=== PATIENT | female | born 1960 | race African-American/Black ===

== ENCOUNTER 2017-06-22 07:52 | Emergency (ER) | payer OTHER ==
[2017-06-22 09:29] LABS: Bilirubin Negative (Negative); Blood, Urine Negative (Negative); Clarity CLEAR (Clear); Glucose, Urine (Dipstick) Negative (Negative); Leukocyte Trace (Negative); Nitrite Negative (Negative); Protein, Urine (Dipstick) Negative (Neg-Trace); Specific Gravity, Urine 1.023 (1.002-1.036); Urobilinogen 0.2 mg/dL (0.2-1.0)
[2017-06-22 09:31] LABS: Bacteria/HPF None Seen HPF (None Seen); Hyaline Casts/LPF 0-3 HYALINE CAST LPF (0-3 Hyaline); Squamous Epithelial None Seen HPF (0-3); WBC/HPF 0-3 HPF (0-3)
[2017-06-22 09:38] LABS: RBC/HPF 0-3 HPF (0-3)
[2017-06-22] MEDS ORDERED: Bacitracin Zinc 1 Packet ONE (10:36)
[2017-06-24 03:48] LABS: Chlamydia by PCR Not Detected (NotDetected); GC by PCR Not Detected (NotDetected)
== END 2017-06-22 10:35 | disposition home or self-care (01) ==
LOC: ERS 07:52
DX: S31.41XA Laceration without foreign body of vagina and vulva, initial encounter (principal); N95.2 Postmenopausal atrophic vaginitis; E66.9 Obesity, unspecified; X58.XXXA Exposure to other specified factors, initial encounter
CPT/HCPCS: 81003; 81015; 87480; 87491; 87510; 87591; 87660; 99283

== ENCOUNTER 2017-07-06 20:19 | Emergency (ER) | payer OTHER ==
[2017-07-06 21:30] LABS: #Lymphocytes 2.4 thou/uL (1.20-3.40); #Monocytes 1.1 thou/uL (0.11-0.59); %Eosinophils 0.5 % (0.0-10.0); %Lymphocytes 31.8 % (21.0-51.0); %Monocytes 14.4 % (0.0-10.0); %Neutrophils 53.4 % (42.0-75.0); Hemoglobin 13.3 g/dL (12.0-16.0); Mean Corpuscular Hemoglobin 28.9 pg (27.0-31.0); Mean Corpuscular Volume 87.6 fl (81.0-99.0); Mean Platelet Volume 6.9 fL (7.4-10.4); Platelet Count 230 thou/uL (130-400); RBC Distribution Width 12.6 % (11.5-14.5); Red Blood Cell (RBC) Count 4.59 mill/uL (4.20-5.40); White Blood Cell (WBC) Count 7.6 thou/uL (4.8-10.8)
[2017-07-06 21:53] LABS: ALT (SGPT) 33 U/L (8-55); AST (SGOT) 29 U/L (5-34); Albumin 3.6 g/dL (3.5-5.0); Alkaline Phosphatase 97 U/L (40-150); Anion Gap 13 mmol/L (10-20); BUN (Urea Nitrogen) 15 mg/dL (9.8-20.1); Bilirubin, Total 0.6 mg/dL (0.2-1.2); Calc. Creatinine Clearance 0 mL/min (70-130); Calcium 8.8 mg/dL (7.8-10.44); Carbon Dioxide 21 mmol/L (22-29); Chloride 107 mmol/L (98-107); Estimated GFR-MDRD 75; Glucose 94 mg/dL (70-105); Protein, Total 7.6 g/dL (6.0-8.3); Sodium 137 mmol/L (136-145)
[2017-07-06 22:11] LABS: CKMB 0.6 ng/mL (0-6.6); Troponin I Less than 0.010 ng/mL (< 0.028)
[2017-07-06] MEDS ORDERED: Meclizine HCl 25 MG TAB ONE (22:15)
[2017-07-06] MEDS ORDERED: Dexamethasone 4 mg/ml Vial ONE (22:15)
--- NOTE | 2017-07-06 22:40 | CT ---
CT BRAIN WITHOUT CONTRAST: 07/06/17 HISTORY: Dizziness. FINDINGS: Comparison made to exam of 02/22/13. No evidence of acute infarct, hemorrhage, midline shift or abnormal extra-axial fluid collections are seen. the ventricular size is normal and the basilar cisterns patent. The bony calvarium is intact. The left paranasal sinuses and mastoid air cells are well aerated. IMPRESSION: No CT evidence of acute intracranial process. POS: [facility]
--- NOTE | 2017-07-06 22:55 | RAD ---
PORTABLE CHEST ONE VIEW 07/06/17 at 9:56 p.m. HISTORY: Dizziness. FINDINGS: Comparison made with exam of 06/04/16. The heart size is normal. The lungs are well expanded without focal areas of consolidation, pneumotho rax or pleural effusions. There are postop changes in the right shoulder. IMPRESSION: No radiographic evidence of acute cardiopulmonary process. POS: [facility]
[2017-07-06 23:19] LABS: Bilirubin Negative (Negative); Blood, Urine Negative (Negative); Clarity CLEAR (Clear); Glucose, Urine (Dipstick) Negative (Negative); Leukocyte Moderate (Negative); Nitrite Negative (Negative); Protein, Urine (Dipstick) Negative (Neg-Trace); Specific Gravity, Urine 1.016 (1.002-1.036)
[2017-07-06 23:21] LABS: Bacteria/HPF Rare-Few HPF (None Seen); Hyaline Casts/LPF 0-3 HYALINE CAST LPF (0-3 Hyaline); Pathc Cast-AUWi Flag 0.29 (0-2.49); RBC/HPF 0-3 HPF (0-3); Squamous Epithelial 0-3 HPF (0-3); WBC/HPF 21-50 HPF (0-3)
== END 2017-07-06 23:38 | disposition home or self-care (01) ==
LOC: ERS 20:19
DX: N30.00 Acute cystitis without hematuria (principal); E66.9 Obesity, unspecified
CPT/HCPCS: 36415; 70450; 71045; 80053; 81003; 81015; 82553; 84484; 85025; 93005; 96361; 96374; J1100

== ENCOUNTER 2017-07-12 23:26 | Emergency (ER) | payer OTHER ==
[2017-07-12 23:44] LABS: Bilirubin Negative (Negative); Blood, Urine Negative (Negative); Clarity CLEAR (Clear); Glucose, Urine (Dipstick) Negative (Negative); Leukocyte Negative (Negative); Nitrite Negative (Negative); Protein, Urine (Dipstick) Negative (Neg-Trace); Specific Gravity, Urine 1.025 (1.002-1.036); pH, Urine 6.5 (5.0-9.0)
[2017-07-12 23:48] LABS: #Basophils 0.1 thou/uL (0.0-0.2); #Eosinphils 0.1 thou/uL (0.0-0.7); #Monocytes 0.7 thou/uL (0.11-0.59); #Neutrophils 4.3 thou/uL (1.40-6.50); %Basophils 0.7 % (0.0-1.0); %Lymphocytes 37.3 % (21.0-51.0); %Monocytes 8.7 % (0.0-10.0); %Neutrophils 52.3 % (42.0-75.0); Mean Corpuscular HGB CONC 32.7 g/dL (32.0-36.0); Mean Corpuscular Hemoglobin 28.7 pg (27.0-31.0); Mean Corpuscular Volume 87.7 fl (81.0-99.0); Mean Platelet Volume 6.6 fL (7.4-10.4); Platelet Count 328 thou/uL (130-400); RBC Distribution Width 12.8 % (11.5-14.5); Red Blood Cell (RBC) Count 4.52 mill/uL (4.20-5.40); White Blood Cell (WBC) Count 8.2 thou/uL (4.8-10.8)
[2017-07-13 00:18] LABS: ALT (SGPT) 28 U/L (8-55); AST (SGOT) 30 U/L (5-34); Albumin 3.6 g/dL (3.5-5.0); Alkaline Phosphatase 147 U/L (40-150); Anion Gap 13 mmol/L (10-20); BUN (Urea Nitrogen) 21 mg/dL (9.8-20.1); Bilirubin, Total 0.2 mg/dL (0.2-1.2); Calc. Creatinine Clearance 0 mL/min (70-130); Calcium 8.7 mg/dL (7.8-10.44); Carbon Dioxide 24 mmol/L (22-29); Chloride 108 mmol/L (98-107); Estimated GFR-MDRD 66; Globulin 4.2 g/dL (2.4-3.5); Glucose 97 mg/dL (70-105); Potassium 4.8 mmol/L (3.5-5.1); Protein, Total 7.8 g/dL (6.0-8.3); Sodium 140 mmol/L (136-145)
== END 2017-07-13 01:00 | disposition home or self-care (01) ==
LOC: ERS 23:26
DX: N39.3 Stress incontinence (female) (male) (principal); E66.9 Obesity, unspecified; Z79.899 Other long term (current) drug therapy
CPT/HCPCS: 36415; 80053; 81003; 85025; 99283

== ENCOUNTER 2018-05-07 12:24 | Emergency (ER) | payer OTHER | END 2018-05-07 13:48 | disposition home or self-care (01) | LOC: ERS 12:24 | DX: J01.90 Acute sinusitis, unspecified (principal); E66.9 Obesity, unspecified | CPT/HCPCS: 99283 ==

== ENCOUNTER 2018-09-29 15:37 | Outpatient (CLI) | payer OTHER ==
--- NOTE | 2018-09-29 16:27 | RAD ---
Lumbar spine 2 views HISTORY: Low back pain. Fall. FINDINGS: Ribs are very hypoplastic at the T12 level. Pedicles are intact. Vertebral body heights and alignment are maintained. Mild osteophytosis of the lower vertebral bodies and facets. Gas disc phenomenon at the lumbosacral junction. No acute fracture or dislocation. Calcification over the elias rial structures. Metallic clips over the gallbladder fossa. Oval calcification over the right retroperitoneal has the appearance of a phlebolith. IMPRESSION: Degenerative changes lumbar spine. No evidence of acute compression fracture. Atherosclerosis.
--- NOTE | 2018-09-29 16:28 | RAD ---
Left ankle 3 views HISTORY: Fall. Left ankle injury. FINDINGS: Ankle mortise and talar dome are intact. No acute fracture, dislocation, or aggressive osse ous erosions. Pes planus noted on the lateral view. IMPRESSION: No acute osseous abnormalities are demonstrated.
--- NOTE | 2018-09-29 16:29 | RAD ---
Left hip 2 views HISTORY: Fall. Left hip pain. FINDINGS: Moderate joint space narrowing. Mild osteophytosis and subchondral sclerosis. Femoral head contour is maintained. No acute fracture, dislocation, or aggressive osseous erosions. IMPRESSION: Mild to moderate osteoarthritic changes left hip. No acute osseous abnormalities are demo nstrated.
== END 2018-09-29 15:38 | disposition home or self-care (01) ==
LOC: BICRAD 15:37
PROVIDERS: ATTEND Family Medicine
DX: S93.402A Sprain of unspecified ligament of left ankle, initial encounter (principal); M25.552 Pain in left hip; M48.061 Spinal stenosis, lumbar region without neurogenic claudication; M16.12 Unilateral primary osteoarthritis, left hip; M47.816 Spondylosis without myelopathy or radiculopathy, lumbar region; I70.90 Unspecified atherosclerosis
CPT/HCPCS: 72100

== ENCOUNTER 2019-01-29 13:02 | Emergency (ER) | payer OTHER | END 2019-01-29 15:10 | disposition home or self-care (01) | LOC: ERS 13:02 | DX: M77.9 Enthesopathy, unspecified (principal); E66.9 Obesity, unspecified; Z79.899 Other long term (current) drug therapy | CPT/HCPCS: 99283 ==

== ENCOUNTER 2019-02-16 11:40 | Emergency (ER) | payer OTHER ==
[2019-02-16 13:46] LABS: Bilirubin Negative (Negative); Blood, Urine Negative (Negative); Clarity Clear (Clear); Glucose, Urine (Dipstick) Normal (Negative); Leukocyte Negative Leu/uL (Negative); Nitrite Negative (Negative); Protein, Urine (Dipstick) 10 mg/dL (Neg-Trace); Urobilinogen Normal mg/dL (Less than 2)
== END 2019-02-16 14:34 | disposition home or self-care (01) ==
LOC: ERS 11:40
DX: K64.4 Residual hemorrhoidal skin tags (principal); K60.2 Anal fissure, unspecified; B37.9 Candidiasis, unspecified; E66.9 Obesity, unspecified
CPT/HCPCS: 81003; 99283

== ENCOUNTER 2019-03-18 15:11 | Emergency (ER) | payer OTHER ==
[2019-03-18] MEDS ORDERED: Meclizine HCl 25 MG TAB ONE (16:00)
== END 2019-03-18 16:20 | disposition home or self-care (01) ==
LOC: ERS 15:11
DX: J30.9 Allergic rhinitis, unspecified (principal); R42 Dizziness and giddiness; E66.9 Obesity, unspecified
CPT/HCPCS: 93005; J8597

== ENCOUNTER 2019-07-18 18:09 | Emergency (ER) | payer OTHER | END 2019-07-18 19:37 | disposition home or self-care (01) | LOC: ERS 18:09 | DX: K04.7 Periapical abscess without sinus (principal); R09.82 Postnasal drip; E66.9 Obesity, unspecified; Z79.899 Other long term (current) drug therapy | CPT/HCPCS: 99282 ==

== ENCOUNTER 2019-08-12 21:45 | Emergency (ER) | payer OTHER | END 2019-08-12 22:38 | disposition home or self-care (01) | LOC: ERS 21:45 | DX: J30.9 Allergic rhinitis, unspecified (principal) | CPT/HCPCS: 99282 ==

== ENCOUNTER 2019-08-21 14:25 | Emergency (ER) | payer OTHER ==
[~2019-08-21 14:25] MED LIST: Iopamidol-370 76% 500 ML 1 ML ONE
[2019-08-21 15:05] LABS: Bilirubin Negative (Negative); Blood, Urine Negative (Negative); Clarity Clear (Clear); Glucose, Urine (Dipstick) Normal (Negative); Leukocyte 75 Leu/uL (Negative); Mucous/LPF Rare LPF (<2+); Nitrite Negative (Negative); Protein, Urine (Dipstick) Negative (Neg-Trace); RBC/HPF 0-3 HPF (0-3); Squamous Epithelial 0-3 HPF (0-3); Urobilinogen Normal mg/dL (Less than 2)
[2019-08-21 15:06] LABS: Bacteria/HPF Rare-Few HPF (None Seen)
[2019-08-21 15:26] LABS: #Lymphocytes 1.6 thou/uL (1.20-3.40); #Monocytes 0.5 thou/uL (0.11-0.59); #Neutrophils 2.1 thou/uL (1.40-6.50); %Basophils 0.4 % (0.0-1.0); %Eosinophils 0.9 % (0.0-10.0); %Lymphocytes 38.4 % (21.0-51.0); %Neutrophils 49.2 % (42.0-75.0); Hemoglobin 12.7 g/dL (12.0-16.0); Mean Corpuscular HGB CONC 33.2 g/dL (32.0-36.0); Mean Corpuscular Hemoglobin 29.3 pg (27.0-31.0); Mean Corpuscular Volume 88.3 fL (78.0-98.0); Mean Platelet Volume 7.8 fL (7.4-10.4); Platelet Count 202 thou/uL (130-400); RBC Distribution Width 12.6 % (11.5-14.5); Red Blood Cell (RBC) Count 4.34 mill/uL (4.20-5.40); White Blood Cell (WBC) Count 4.3 thou/uL (4.8-10.8)
[2019-08-21] MEDS ORDERED: Meclizine HCl 25 MG TAB ONE (15:35)
[2019-08-21 15:46] LABS: ALT (SGPT) 36 U/L (8-55); AST (SGOT) 33 U/L (5-34); Albumin 3.7 g/dL (3.4-4.8); Alkaline Phosphatase 127 U/L (40-110); Anion Gap 13 mmol/L (10-20); BUN (Urea Nitrogen) 16 mg/dL (9.8-20.1); Bilirubin, Total 0.3 mg/dL (0.2-1.2); Calc. Creatinine Clearance 0 mL/min (70-130); Calcium 9.1 mg/dL (7.8-10.44); Carbon Dioxide 23 mmol/L (23-31); Chloride 108 mmol/L (98-107); Estimated GFR-MDRD 74; Globulin 4.1 g/dL (2.4-3.5); Glucose 95 mg/dL (80-115); Lipase 38 U/L (8-78); Potassium 3.7 mmol/L (3.5-5.1); Protein, Total 7.8 g/dL (6.0-8.3); Sodium 140 mmol/L (136-145)
--- NOTE | 2019-08-21 17:30 | CT ---
CT ABDOMEN AND PELVIS WITH CONTRAST: 08/21/19 HISTORY: Intermittent abdominal pain for one week in middle of her abdomen and lower abdomen. TECHNIQUE: Multiple contiguous axial images obtained in a CT of the abdomen and pelvis with contrast. Sagittal a nd coronal reformats were performed. FINDINGS: The patient is status post cholecystectomy and hysterectomy. There is a 4.0 cm cyst in the right kidn ey. The liver, left kidney, adrenal glands, spleen, and pancreas are unremarkable. No free air, free fluid or stranding changes are seen in the abdomen or pelvis. The large and small bowel are unremarkable. The appendix is normal. No abdominal or pelvic lymphadeno jesus are seen. Atherosclerotic calcifications are seen in the aorta. Degenerative changes are seen in the spine. The visualized inferior thorax is unremarkable. There is a small fat containing umbilical hernia. IMPRESSION: 1. No evidence of acute intra-abdominal/pelvic abnormality. 2. Right renal cyst. 3. Umbilical hernia. POS: [facility]
[2019-08-25 19:25] LABS: Chlamydia by PCR Not Detected (NotDetected); GC by PCR DETECTED (NotDetected)
== END 2019-08-21 17:26 | disposition home or self-care (01) ==
LOC: ERS 14:25
DX: N28.1 Cyst of kidney, acquired (principal); B37.3 Candidiasis of vulva and vagina; N73.9 Female pelvic inflammatory disease, unspecified
CPT/HCPCS: 74177; 80053; 81003; 81015; 83690; 85025; 87077; 87086; 87186; 87480; 87491; 87510; 87591; 87660; 93005; 96372; J0500; Q9967

== ENCOUNTER 2019-08-26 07:01 | Emergency (ER) | payer OTHER ==
[2019-08-26 08:33] LABS: #Lymphocytes 1.1 thou/uL (1.20-3.40); #Monocytes 0.6 thou/uL (0.11-0.59); #Neutrophils 2.8 thou/uL (1.40-6.50); %Basophils 0.3 % (0.0-1.0); %Eosinophils 0.4 % (0.0-10.0); %Lymphocytes 23.8 % (21.0-51.0); %Monocytes 12.6 % (0.0-10.0); %Neutrophils 62.9 % (42.0-75.0); Mean Corpuscular HGB CONC 32.2 g/dL (32.0-36.0); Mean Corpuscular Hemoglobin 28.2 pg (27.0-31.0); Mean Corpuscular Volume 87.5 fL (78.0-98.0); Mean Platelet Volume 8.5 fL (7.4-10.4); Platelet Count 208 thou/uL (130-400); RBC Distribution Width 12.7 % (11.5-14.5); Red Blood Cell (RBC) Count 4.62 mill/uL (4.20-5.40); White Blood Cell (WBC) Count 4.4 thou/uL (4.8-10.8)
[2019-08-26 09:00] LABS: ALT (SGPT) 34 U/L (8-55); AST (SGOT) 34 U/L (5-34); Albumin 3.9 g/dL (3.4-4.8); Alkaline Phosphatase 114 U/L (40-110); Anion Gap 14 mmol/L (10-20); BUN (Urea Nitrogen) 11 mg/dL (9.8-20.1); Bilirubin, Total 0.4 mg/dL (0.2-1.2); Calc. Creatinine Clearance 0 mL/min (70-130); Calcium 8.8 mg/dL (7.8-10.44); Carbon Dioxide 22 mmol/L (23-31); Chloride 101 mmol/L (98-107); Estimated GFR-MDRD 80; Globulin 3.9 g/dL (2.4-3.5); Glucose 119 mg/dL (80-115); Potassium 3.7 mmol/L (3.5-5.1); Protein, Total 7.8 g/dL (6.0-8.3); Sodium 133 mmol/L (136-145)
[2019-08-26] MEDS ORDERED: Meclizine HCl 25 MG TAB ONE (09:03)
[2019-08-26 09:34] LABS: Bilirubin Negative (Negative); Blood, Urine Negative (Negative); Clarity Clear (Clear); Glucose, Urine (Dipstick) Normal (Negative); Leukocyte Negative Leu/uL (Negative); Nitrite Negative (Negative); Protein, Urine (Dipstick) Negative (Neg-Trace); Urobilinogen Normal mg/dL (Less than 2)
[2019-08-26] MEDS ORDERED: Metoclopramide HCl 10 MG/2 ML VIAL ONE (10:33)
[2019-08-26] MEDS ORDERED: Ketorolac Tromethamine 30 MG/ML VIAL ONE (10:33)
[2019-08-26] MEDS ORDERED: diphenhydrAMINE 50 MG/ML VIAL ONE (10:33)
[2019-08-26] MEDS ORDERED: methylPREDNISolone Sod Succ/PF 125 MG/2 ML VIAL ONE (10:33)
--- NOTE | 2019-08-26 10:59 | CT ---
EXAM: CT brain without contrast HISTORY: Vertigo and headache COMPARISON: 06/28/2017 TECHNIQUE: Multiple contiguous axial images were obtained and a CT of the brain without contrast. FINDINGS: There are subtle scattered hypodensities in the subcortical and periventricular white matte r consistent with small vessel ischemic disease. There is no evidence of hydrocephalus, intracranial hemorrhage, or extra-axial fluid collection. The calvarium and overlying soft tissues are unremarkable. The visualized paranasal sinuses and masto id air cells are well aerated. IMPRESSION: No evidence of acute intracranial abnormality
[2019-08-27 12:08] LABS: SARS-CoV-2 MS2 Positive; SARS-CoV-2 N Gene Positive; SARS-CoV-2 S Gene Positive; SARS-CoV-2 orf1ab Positive
--- NOTE | 2019-08-29 15:29 | EKG ---
Test Reason : Blood Pressure : / mmHG Vent. Rate : 069 BPM Atrial Rate : 069 BPM P-R Int : 142 ms QRS Dur : 070 ms QT Int : 412 ms P-R-T Axes : 046 -02 033 degrees QTc Int : 441 ms Normal sinus rhythm Minimal voltage criteria for LVH, may be normal variant Borderline ECG Confirmed by SAVITA ROLDAN, BRITNEY ([id number]), web content editor JOE SALAZAR ([id number]) on 08/29/2019 3:28:36 PM Referred By: Confirmed By:BRITNEY BARNEY MD
== END 2019-08-26 12:25 | disposition home or self-care (01) ==
LOC: ERS 07:01
DX: R51 Headache (principal); R42 Dizziness and giddiness; R53.1 Weakness; E66.9 Obesity, unspecified
CPT/HCPCS: 70450; 80053; 81003; 85025; 87635; 93005; 96361; 96365; 96375; J1200; J1885; J2765; J2930; U0003

== ENCOUNTER 2019-08-30 14:44 | Emergency (ER) | payer OTHER ==
[2019-08-30] MEDS ORDERED: Dexamethasone 10 MG/ML VIAL ONE (15:04)
[2019-08-30] MEDS ORDERED: Meclizine HCl 25 MG TAB ONE (15:04)
[2019-08-30] MEDS ORDERED: Lorazepam 2 MG/ML VIAL ONE (15:04)
--- NOTE | 2019-08-30 15:28 | RAD ---
EXAM: Single view of the chest HISTORY: Shortness of breath when walking and dizziness COMPARISON: 06/28/2017 FINDINGS: Single view of the chest shows an enlarged but stable cardiomediastinal silhouette. There i s no evidence of consolidation, mass, or pleural effusion. Postsurgical changes in the right shoulder. IMPRESSION: No evidence of acute cardiopulmonary disease
[2019-08-30 15:50] LABS: Hemoglobin 13.5 g/dL (12.0-16.0); Mean Corpuscular HGB CONC 33.2 g/dL (32.0-36.0); Mean Corpuscular Hemoglobin 28.8 pg (27.0-31.0); Mean Corpuscular Volume 86.6 fL (78.0-98.0); Mean Platelet Volume 8.1 fL (7.4-10.4); Platelet Count 174 thou/uL (130-400); RBC Distribution Width 12.5 % (11.5-14.5); White Blood Cell (WBC) Count 2.7 thou/uL (4.8-10.8)
[2019-08-30 16:06] LABS: ALT (SGPT) 26 U/L (8-55); AST (SGOT) 35 U/L (5-34); Albumin 3.4 g/dL (3.4-4.8); Alkaline Phosphatase 81 U/L (40-110); Anion Gap 14 mmol/L (10-20); BUN (Urea Nitrogen) 12 mg/dL (9.8-20.1); Bilirubin, Total 0.3 mg/dL (0.2-1.2); CK (CPK) 206 U/L (29-168); Calc. Creatinine Clearance 0 mL/min (70-130); Calcium 8.5 mg/dL (7.8-10.44); Carbon Dioxide 23 mmol/L (23-31); Chloride 100 mmol/L (98-107); Estimated GFR-MDRD 74; Globulin 3.9 g/dL (2.4-3.5); Glucose 118 mg/dL (80-115); Lipase 47 U/L (8-78); Potassium 3.3 mmol/L (3.5-5.1); Protein, Total 7.3 g/dL (6.0-8.3); Sodium 134 mmol/L (136-145)
[2019-08-30 16:11] LABS: Band 5 % (5-11); Lymphocytes 27 % (21-51); MDiff Complete? YES; Monocytes 14 % (0-10); Neutrophil 39 % (42-75); Platelet Morphology Comment Appears Adequate; RBC Morphology Normal; Reactive Lymphocytes 15 % (0-10)
--- NOTE | 2019-08-30 17:35 | CT ---
CT PULMONARY ANGIOGRAM WITH IV CONTRAST AND 3D MIP RECONSTRUCTIONS: Date: 08-30-2019 Provided Clinical History: Cough, shortness of breath, Covid positive. FINDINGS: The heart, pericardium, and great vessels demonstrate an unremarkable CT angiographic appearance with the exception of pulmonary calcium. There is no evidence for central or segmental pulmonary embolus. No evidence for thoracic lymph node enlargement. No pleural fluid or pneumothorax evident. Multiple patchy peripheral areas of ground glass opacity ar e demonstrated bilaterally. No juan consolidation or focal nodule. The airway appears patent and of normal caliber. The visualized portions of the upper abdomen demonstrate no significant abnormality. The osseous stru ctures demonstrate no concerning lytic or blastic lesions. IMPRESSION: 1. No evidence for central or segmental pulmonary embolus. 2. Coronary calcium. 3. Common liver port has imaging features of Covid pneumonia are present. Other processes such as inf luenza pneumonia and organizing pneumonia can cause a similar imaging pattern. POS: [facility]
== END 2019-08-30 18:10 | disposition home or self-care (01) ==
LOC: ERS 14:44
DX: U07.1 COVID-19 (principal); J12.89 Other viral pneumonia; R42 Dizziness and giddiness; E66.9 Obesity, unspecified; Z79.899 Other long term (current) drug therapy
CPT/HCPCS: 71045; 71275; 80053; 82550; 83690; 84484; 85025; 85379; 93005; 96361; 96374; J1100; J2060; Q9967

== ENCOUNTER 2019-11-21 08:17 | Emergency (ER) | payer OTHER ==
[2019-11-21] MEDS ORDERED: Ketorolac Tromethamine 30 MG/ML VIAL ONE (08:43)
== END 2019-11-21 09:36 | disposition home or self-care (01) ==
LOC: ERS 08:17
DX: M79.601 Pain in right arm (principal); M79.602 Pain in left arm; M79.604 Pain in right leg; M79.605 Pain in left leg; R05 Cough; E66.9 Obesity, unspecified
CPT/HCPCS: 96372; 99283; J1885

== ENCOUNTER 2020-01-28 18:12 | Emergency (ER) | payer OTHER ==
--- NOTE | 2020-01-28 20:33 | RAD ---
TWO VIEW CHEST: 01/28/20 HISTORY: Shortness of breath. COMPARISON: 10/21/19. Lungs appear clear. No infiltrate identified. Heart and mediastinum unremarkable. IMPRESSION: No acute process. POS: [facility]
== END 2020-01-28 22:24 | disposition home or self-care (01) ==
LOC: ERS 18:12
DX: J39.8 Other specified diseases of upper respiratory tract (principal); E66.9 Obesity, unspecified; I10 Essential (primary) hypertension; Z86.19 Personal history of other infectious and parasitic diseases; Z79.899 Other long term (current) drug therapy
CPT/HCPCS: 71046

== ENCOUNTER 2020-07-10 16:34 | Emergency (ER) | payer OTHER ==
[2020-07-10 17:59] LABS: Bilirubin Negative (Negative); Blood, Urine Negative (Negative); Clarity Clear (Clear); Glucose, Urine (Dipstick) Normal (Negative); Ketone, Urine Negative (Negative); Leukocyte Negative Leu/uL (Negative); Nitrite Negative (Negative); Protein, Urine (Dipstick) Negative (Neg-Trace); Specific Gravity, Urine 1.025 (1.002-1.036); Urobilinogen Normal mg/dL (Less than 2)
[2020-07-10] MEDS ORDERED: Acetaminophen 500 MG TAB ONE (18:46)
[2020-07-12 21:55] LABS: Chlamydia by PCR Not Detected (NotDetected); GC by PCR Not Detected (NotDetected)
== END 2020-07-10 19:50 | disposition home or self-care (01) ==
LOC: ERS 16:34
DX: M79.605 Pain in left leg (principal); M79.604 Pain in right leg; N89.8 Other specified noninflammatory disorders of vagina; I10 Essential (primary) hypertension; E66.9 Obesity, unspecified
CPT/HCPCS: 81003; 87086; 87480; 87491; 87510; 87591; 87660; 99283

== ENCOUNTER 2020-09-17 14:39 | Emergency (ER) | payer OTHER ==
[2020-09-17 15:50] LABS: #Eosinphils 0.1 thou/uL (0.0-0.7); #Lymphocytes 2.1 thou/uL (1.20-3.40); #Monocytes 0.6 thou/uL (0.11-0.59); #Neutrophils 2.2 thou/uL (1.40-6.50); %Basophils 0.2 % (0.0-1.0); %Eosinophils 1.3 % (0.0-10.0); %Lymphocytes 43.2 % (21.0-51.0); %Monocytes 11.3 % (0.0-10.0); %Neutrophils 43.9 % (42.0-75.0); Hemoglobin 13.6 g/dL (12.0-16.0); Mean Corpuscular HGB CONC 31.9 g/dL (32.0-36.0); Mean Corpuscular Hemoglobin 28.6 pg (27.0-31.0); Mean Corpuscular Volume 89.6 fL (78.0-98.0); Mean Platelet Volume 7.9 fL (7.4-10.4); Platelet Count 224 thou/uL (130-400); RBC Distribution Width 12.8 % (11.5-14.5); Red Blood Cell (RBC) Count 4.76 mill/uL (4.20-5.40); White Blood Cell (WBC) Count 4.9 thou/uL (4.8-10.8)
[2020-09-17] MEDS ORDERED: Nitroglycerin 2% Ointment 1 INCH/1 GM Packet ONE (16:11)
[2020-09-17] MEDS ORDERED: Aspirin Chewable 81 MG TAB ONE (16:11)
[2020-09-17 16:47] LABS: Bilirubin Negative (Negative); Blood, Urine Negative (Negative); Clarity Clear (Clear); Glucose, Urine (Dipstick) Normal (Negative); Ketone, Urine Negative (Negative); Leukocyte Negative Leu/uL (Negative); Nitrite Negative (Negative); Protein, Urine (Dipstick) Negative (Neg-Trace); Specific Gravity, Urine 1.018 (1.002-1.036); Urobilinogen Normal mg/dL (Less than 2); pH, Urine 5.5 (5.0-9.0)
[2020-09-17 17:01] LABS: Albumin 3.6 g/dL (3.4-4.8)
[2020-09-17 17:02] LABS: Calcium 9.2 mg/dL (7.8-10.44); Chloride 107 mmol/L (98-107); Potassium 3.7 mmol/L (3.5-5.1); Sodium 137 mmol/L (136-145)
[2020-09-17 17:03] LABS: Globulin 3.9 g/dL (2.4-3.5); Glucose 79 mg/dL (80-115); Protein, Total 7.5 g/dL (5.8-8.1)
[2020-09-17 17:04] LABS: Anion Gap 13 mmol/L (10-20); Carbon Dioxide 21 mmol/L (23-31)
[2020-09-17 17:05] LABS: Bilirubin, Total 0.4 mg/dL (0.2-1.2)
[2020-09-17 17:06] LABS: Alkaline Phosphatase 108 U/L (40-110); Calc. Creatinine Clearance 0 mL/min (70-130)
[2020-09-17 17:07] LABS: BUN (Urea Nitrogen) 16 mg/dL (9.8-20.1)
[2020-09-17 17:08] LABS: AST (SGOT) 25 U/L (5-34)
[2020-09-17 17:09] LABS: ALT (SGPT) 23 U/L (8-55); Lipase 48 U/L (8-78)
[2020-09-17 20:46] LABS: Troponin I Less than 0.010 ng/mL (< 0.028)
== END 2020-09-17 21:30 | disposition home or self-care (01) ==
LOC: ERS 14:39
DX: R07.9 Chest pain, unspecified (principal); I10 Essential (primary) hypertension; E66.9 Obesity, unspecified
CPT/HCPCS: 36415; 71045; 80053; 81003; 83690; 83880; 84484; 85025; 93005

== ENCOUNTER 2021-03-15 13:45 | Outpatient (CLI) | payer OTHER | END 2021-03-15 13:46 | disposition home or self-care (01) | LOC: BICRAD 13:45 | PROVIDERS: ATTEND Family Medicine | DX: M54.50 Low back pain, unspecified (principal); G89.29 Other chronic pain | CPT/HCPCS: 71046; 72100; 72170 ==

== ENCOUNTER 2021-03-28 11:04 | Outpatient (CLI) | payer OTHER | END 2021-03-28 11:05 | disposition home or self-care (01) | LOC: BICMAMMO 11:04 | PROVIDERS: ATTEND Family Medicine | DX: Z12.31 Encounter for screening mammogram for malignant neoplasm of breast (principal); Z80.3 Family history of malignant neoplasm of breast; Z91.89 Other specified personal risk factors, not elsewhere classified; N64.89 Other specified disorders of breast | CPT/HCPCS: 77067 ==

== ENCOUNTER 2021-03-29 13:53 | Outpatient (CLI) | payer OTHER | END 2021-03-29 13:54 | disposition home or self-care (01) | LOC: BICMAMMO 13:53 | PROVIDERS: ATTEND Family Medicine | DX: R92.2 Inconclusive mammogram (principal); N64.89 Other specified disorders of breast | CPT/HCPCS: G0279 ==

== ENCOUNTER 2021-04-04 01:51 | Emergency (ER) | payer OTHER ==
[2021-04-04 03:18] LABS: #Basophils 0.1 thou/uL (0.0-0.2); #Eosinphils 0.1 thou/uL (0.0-0.7); #Lymphocytes 1.9 thou/uL (1.20-3.40); #Monocytes 0.6 thou/uL (0.11-0.59); #Neutrophils 2.1 thou/uL (1.40-6.50); %Basophils 1.5 % (0.0-1.0); %Eosinophils 1.2 % (0.0-10.0); %Lymphocytes 41.1 % (21.0-51.0); %Monocytes 11.9 % (0.0-10.0); %Neutrophils 44.3 % (42.0-75.0); Hemoglobin 12.5 g/dL (12.0-16.0); Mean Corpuscular HGB CONC 31.5 g/dL (32.0-36.0); Mean Corpuscular Hemoglobin 28.4 pg (27.0-31.0); Mean Corpuscular Volume 90.2 fL (78.0-98.0); Mean Platelet Volume 7.2 fL (7.4-10.4); Platelet Count 192 thou/uL (130-400); RBC Distribution Width 12.5 % (11.5-14.5); Red Blood Cell (RBC) Count 4.42 mill/uL (4.20-5.40); White Blood Cell (WBC) Count 4.7 thou/uL (4.8-10.8)
[2021-04-04 03:35] LABS: ALT (SGPT) 42 U/L (8-55); AST (SGOT) 38 U/L (5-34); Albumin 3.3 g/dL (3.4-4.8); Alkaline Phosphatase 117 U/L (40-110); Anion Gap 14 mmol/L (10-20); BUN (Urea Nitrogen) 16 mg/dL (9.8-20.1); Bilirubin, Total 0.3 mg/dL (0.2-1.2); Calc. Creatinine Clearance 0 mL/min (70-130); Calcium 8.9 mg/dL (7.8-10.44); Carbon Dioxide 19 mmol/L (23-31); Chloride 110 mmol/L (98-107); Globulin 3.7 g/dL (2.4-3.5); Glucose 121 mg/dL (80-115); Potassium 3.7 mmol/L (3.5-5.1); Sodium 139 mmol/L (136-145)
[2021-04-04] MEDS ORDERED: diphenhydrAMINE 25 MG CAP ONE (05:39)
== END 2021-04-04 06:10 | disposition home or self-care (01) ==
LOC: ERS 01:51
DX: R06.00 Dyspnea, unspecified (principal); I10 Essential (primary) hypertension; E66.9 Obesity, unspecified
CPT/HCPCS: 36415; 71045; 80053; 83880; 84484; 85025; 93005

== ENCOUNTER 2021-04-11 12:13 | Outpatient (CLI) | payer OTHER | END 2021-04-11 12:14 | disposition home or self-care (01) | LOC: MRI 12:13 | PROVIDERS: ATTEND Family Medicine | DX: M47.816 Spondylosis without myelopathy or radiculopathy, lumbar region (principal); G89.4 Chronic pain syndrome; M51.9 Unspecified thoracic, thoracolumbar and lumbosacral intervertebral disc disorder | CPT/HCPCS: 72148 ==

== ENCOUNTER 2021-08-15 15:49 | Emergency (ER) | payer OTHER ==
[2021-08-15] MEDS ORDERED: Ondansetron PF 4 MG/2 ML Vial ONE (16:22)
[2021-08-15 17:08] LABS: Hemoglobin 13.2 g/dL (12.0-16.0); Lymphocytes 32 % (21-51); MDiff Complete? YES; Mean Corpuscular HGB CONC 33.2 g/dL (32.0-36.0); Mean Corpuscular Volume 90.3 fL (78.0-98.0); Mean Platelet Volume 8.3 fL (7.4-10.4); Monocytes 8 % (0-10); Neutrophil 50 % (42-75); Platelet Count 157 thou/uL (130-400); Platelet Morphology Comment Appears Adequate; RBC Distribution Width 13.1 % (11.5-14.5); RBC Morphology Normal; Reactive Lymphocytes 6 % (0-10); Red Blood Cell (RBC) Count 4.41 mill/uL (4.20-5.40)
[2021-08-15 17:21] LABS: ALT (SGPT) 47 U/L (8-55); AST (SGOT) 70 U/L (5-34); Lipase 29 U/L (8-78)
[2021-08-15 18:00] LABS: Bilirubin Negative (Negative); Blood, Urine Negative (Negative); Clarity Clear (Clear); Glucose, Urine (Dipstick) Normal (Negative); Ketone, Urine Negative (Negative); Leukocyte Negative Leu/uL (Negative); Nitrite Negative (Negative); Protein, Urine (Dipstick) Negative (Neg-Trace); Specific Gravity, Urine 1.016 (1.002-1.036); Urobilinogen Normal mg/dL (Less than 2)
[2021-08-15 18:45] LABS: Albumin 3.4 g/dL (3.4-4.8)
[2021-08-15 18:46] LABS: Chloride 106 mmol/L (98-107); Potassium 4.2 mmol/L (3.5-5.1); Sodium 138 mmol/L (136-145)
[2021-08-15 18:47] LABS: Glucose 84 mg/dL (80-115)
[2021-08-15 18:48] LABS: Globulin 3.4 g/dL (2.4-3.5); Protein, Total 6.8 g/dL (5.8-8.1)
[2021-08-15 18:49] LABS: Anion Gap 10 mmol/L (10-20); Bilirubin, Total 0.4 mg/dL (0.2-1.2); Carbon Dioxide 26 mmol/L (23-31)
[2021-08-15 18:49] LABS: SARS-CoV-2 NAA Rapid Test Not Detected (NotDetected)
[2021-08-15 18:50] LABS: Alkaline Phosphatase 101 U/L (40-110)
[2021-08-15 18:51] LABS: Calc. Creatinine Clearance 0 mL/min (70-130)
[2021-08-15 18:52] LABS: BUN (Urea Nitrogen) 17 mg/dL (9.8-20.1)
== END 2021-08-15 19:21 | disposition home or self-care (01) ==
LOC: ERS 15:49
DX: B34.9 Viral infection, unspecified (principal); Z20.822 Contact with and (suspected) exposure to COVID-19; I10 Essential (primary) hypertension; Z79.899 Other long term (current) drug therapy
CPT/HCPCS: 71045; 80053; 81003; 83605; 83690; 84484; 85025; 93005; 96361; 96374; J2405; U0002

== ENCOUNTER 2021-09-28 10:01 | Emergency (ER) | payer OTHER ==
[~2021-09-28 10:01] MED LIST changes: +ISOVUE-370 76%-LOCM 1 ML ONE; -Iopamidol-370 76% 500 ML 1 ML ONE
[2021-09-28 10:55] LABS: #Basophils 0.1 thou/uL (0.0-0.2); #Lymphocytes 2.1 thou/uL (1.20-3.40); #Monocytes 0.8 thou/uL (0.11-0.59); #Neutrophils 3.1 thou/uL (1.40-6.50); %Basophils 0.9 % (0.0-1.0); %Eosinophils 0.7 % (0.0-10.0); %Lymphocytes 34.9 % (21.0-51.0); %Monocytes 12.4 % (0.0-10.0); %Neutrophils 51.1 % (42.0-75.0); Hemoglobin 13.8 g/dL (12.0-16.0); Mean Corpuscular HGB CONC 31.5 g/dL (32.0-36.0); Mean Corpuscular Hemoglobin 29.4 pg (27.0-31.0); Mean Corpuscular Volume 93.4 fL (78.0-98.0); Mean Platelet Volume 7.5 fL (7.4-10.4); Platelet Count 205 thou/uL (130-400); RBC Distribution Width 12.6 % (11.5-14.5); Red Blood Cell (RBC) Count 4.68 mill/uL (4.20-5.40); White Blood Cell (WBC) Count 6.1 thou/uL (4.8-10.8)
[2021-09-28 11:17] LABS: ALT (SGPT) 51 U/L (8-55); AST (SGOT) 48 U/L (5-34); Albumin 3.6 g/dL (3.4-4.8); Alkaline Phosphatase 112 U/L (40-110); Anion Gap 12 mmol/L (10-20); BUN (Urea Nitrogen) 17 mg/dL (9.8-20.1); Bilirubin, Total 0.3 mg/dL (0.2-1.2); Calc. Creatinine Clearance 0 mL/min (70-130); Carbon Dioxide 24 mmol/L (23-31); Chloride 106 mmol/L (98-107); Estimated GFR 55; Globulin 4.2 g/dL (2.4-3.5); Glucose 96 mg/dL (80-115); Lipase 45 U/L (8-78); Protein, Total 7.8 g/dL (5.8-8.1); Sodium 138 mmol/L (136-145)
== END 2021-09-28 12:58 | disposition home or self-care (01) ==
LOC: ERS 10:01
DX: R10.13 Epigastric pain (principal); R10.11 Right upper quadrant pain; R11.0 Nausea; I10 Essential (primary) hypertension; Z79.899 Other long term (current) drug therapy
CPT/HCPCS: 36415; 74177; 80053; 83690; 84484; 85025; 93005; Q9966

== ENCOUNTER 2021-10-02 18:54 | Emergency (ER) | payer OTHER ==
[2021-10-02] MEDS ORDERED: Oxymetazoline HCl 0.05% (30 ML BOT) ONE (21:26)
[2021-10-02] MEDS ORDERED: guaiFENesin ER 600 MG TAB PO SCH (21:30)
[2021-10-02] MEDS ORDERED: Loratadine 10 MG TAB PO SCH (21:30)
[2021-10-02] MEDS ORDERED: Ibuprofen 600 MG TAB PO SCH (21:30)
== END 2021-10-02 21:58 | disposition home or self-care (01) ==
LOC: ERS 18:54
DX: U07.1 COVID-19 (principal); J31.0 Chronic rhinitis; I10 Essential (primary) hypertension
CPT/HCPCS: 99283; U0003; U0005

== ENCOUNTER 2021-11-29 09:50 | Emergency (ER) | payer OTHER ==
[2021-11-29] MEDS ORDERED: Ketorolac Tromethamine 30 MG/ML VIAL ONE (11:57)
== END 2021-11-29 13:10 | disposition home or self-care (01) ==
LOC: ERS 09:50
DX: M25.551 Pain in right hip (principal); R09.81 Nasal congestion; I10 Essential (primary) hypertension; E66.9 Obesity, unspecified; W18.2XXA Fall in (into) shower or empty bathtub, initial encounter; Z20.822 Contact with and (suspected) exposure to COVID-19; Z68.45 Body mass index [BMI] 70 or greater, adult; Z86.16 Personal history of COVID-19; Z79.899 Other long term (current) drug therapy
CPT/HCPCS: 72170; 96372; J1885; U0003; U0005

== ENCOUNTER 2021-12-22 07:04 | Day surgery (SDC) | payer OTHER ==
[2021-12-22] MEDS ORDERED: Fentanyl 100 MCG/2 ML VIAL ONE (09:16)
[2021-12-22] MEDS ORDERED: PROPOFOL 200 MG/20 ML VIAL ONE (09:30)
== END 2021-12-22 10:20 | disposition home or self-care (01) ==
LOC: SDC 07:04
PROVIDERS: ATTEND Internal Medicine Gastroenterology
PROC: 0DB68ZX Excision of Stomach, Via Natural or Artificial Opening Endoscopic, Diagnostic (ICD-10-PCS; principal; 2021-12-22)
DX: K29.50 Unspecified chronic gastritis without bleeding (principal); K25.9 Gastric ulcer, unspecified as acute or chronic, without hemorrhage or perforation; K44.9 Diaphragmatic hernia without obstruction or gangrene; I10 Essential (primary) hypertension; B18.2 Chronic viral hepatitis C; M19.90 Unspecified osteoarthritis, unspecified site; J45.909 Unspecified asthma, uncomplicated; E66.9 Obesity, unspecified; Z68.41 Body mass index [BMI] 40.0-44.9, adult; Z86.16 Personal history of COVID-19
CPT/HCPCS: 88305; 88342; J2704; J3010

== ENCOUNTER 2021-12-24 04:24 | Emergency (ER) | payer OTHER ==
[2021-12-24] MEDS ORDERED: Meclizine HCl 25 MG TAB ONE (05:48)
== END 2021-12-24 06:25 | disposition home or self-care (01) ==
LOC: ERS 04:24
DX: J45.909 Unspecified asthma, uncomplicated (principal); Z20.822 Contact with and (suspected) exposure to COVID-19
CPT/HCPCS: 71045; 72170; U0003; U0005

== ENCOUNTER 2022-02-17 09:38 | Emergency (ER) | payer OTHER ==
[2022-02-17 10:57] LABS: #Eosinphils 0.1 thou/uL (0.0-0.7); #Lymphocytes 2.5 thou/uL (1.20-3.40); #Monocytes 0.8 thou/uL (0.11-0.59); #Neutrophils 3.2 thou/uL (1.40-6.50); %Basophils 0.3 % (0.0-1.0); %Eosinophils 0.8 % (0.0-10.0); %Lymphocytes 38.4 % (21.0-51.0); %Neutrophils 48.5 % (42.0-75.0); Hemoglobin 13.4 g/dL (12.0-16.0); Mean Corpuscular HGB CONC 32.1 g/dL (32.0-36.0); Mean Corpuscular Hemoglobin 30.1 pg (27.0-31.0); Mean Corpuscular Volume 93.6 fl (78.0-98.0); Mean Platelet Volume 7.8 fL (7.4-10.4); Platelet Count 203 10x3/uL (130-400); RBC Distribution Width 12.9 % (11.5-14.5); Red Blood Cell (RBC) Count 4.44 mill/uL (4.20-5.40); White Blood Cell (WBC) Count 6.6 10x3/uL (4.8-10.8)
[2022-02-17 11:00] LABS: Bacteria/HPF None Seen HPF (None Seen); Bilirubin Negative (Negative); Blood, Urine Negative (Negative); Clarity Clear (Clear); Glucose, Urine (Dipstick) Normal (Negative); Ketone, Urine Negative (Negative); Leukocyte 25 Leu/uL (Negative); Nitrite Negative (Negative); Protein, Urine (Dipstick) Negative (Neg-Trace); RBC/HPF 0-3 HPF (0-3); Specific Gravity, Urine 1.027 (1.002-1.036); Squamous Epithelial 0-3 HPF (0-3); Urobilinogen Normal mg/dL (Less than 2); WBC/HPF 0-3 HPF (0-3)
[2022-02-17 11:07] LABS: ALT (SGPT) 16 U/L (8-55); AST (SGOT) 16 U/L (5-34); Albumin 3.6 g/dL (3.4-4.8); Alkaline Phosphatase 112 U/L (40-110); Anion Gap 12 mmol/L (10-20); BUN (Urea Nitrogen) 17 mg/dL (9.8-20.1); Bilirubin, Total 0.4 mg/dL (0.2-1.2); Calc. Creatinine Clearance 0 mL/min (70-130); Calcium 8.9 mg/dL (7.8-10.44); Carbon Dioxide 26 mmol/L (23-31); Chloride 105 mmol/L (98-107); Estimated GFR 43; Globulin 3.4 g/dL (2.4-3.5); Glucose 99 mg/dL (80-115); Potassium 4.1 mmol/L (3.5-5.1); Sodium 139 mmol/L (136-145)
== END 2022-02-17 12:22 | disposition home or self-care (01) ==
LOC: ERS 09:38
DX: N94.10 Unspecified dyspareunia (principal); B37.31 Acute candidiasis of vulva and vagina
CPT/HCPCS: 36415; 74177; 80053; 81003; 81015; 85025; 87086

== ENCOUNTER 2022-03-21 10:25 | Emergency (ER) | payer OTHER ==
[2022-03-21] MEDS ORDERED: Ibuprofen 800 MG TAB ONE (10:55)
== END 2022-03-21 13:08 | disposition home or self-care (01) ==
LOC: ERS 10:25
DX: S70.01XA Contusion of right hip, initial encounter (principal); G89.29 Other chronic pain; W19.XXXA Unspecified fall, initial encounter
CPT/HCPCS: 72192

== ENCOUNTER 2022-09-30 18:04 | Emergency (ER) | payer OTHER ==
[2022-09-30 18:49] LABS: Bacteria/HPF None Seen HPF (None Seen); Bilirubin Negative (Negative); Blood, Urine Negative (Negative); CAUTI Indications for Culture Pelvic or flank pain; Clarity Clear (Clear); Glucose, Urine (Dipstick) Normal (Negative); Ketone, Urine Negative (Negative); Leukocyte Negative Leu/uL (Negative); Nitrite Negative (Negative); Protein, Urine (Dipstick) Negative (Neg-Trace); RBC/HPF None Seen HPF (0-3); Specific Gravity, Urine 1.021 (1.002-1.036); Squamous Epithelial 0-3 HPF (0-3); Urobilinogen Normal mg/dL (Less than 2); WBC/HPF 0-3 HPF (0-3)
[2022-09-30 18:52] LABS: Urine Culture Reflex No No
== END 2022-09-30 19:37 | disposition home or self-care (01) ==
LOC: ERS 18:04
DX: N89.8 Other specified noninflammatory disorders of vagina (principal); L03.317 Cellulitis of buttock; I10 Essential (primary) hypertension; Z79.899 Other long term (current) drug therapy
CPT/HCPCS: 81001; 99283

== ENCOUNTER 2022-12-28 18:11 | Emergency (ER) | payer OTHER ==
[2022-12-28 18:58] LABS: Bacteria/HPF None Seen HPF (None Seen); Bilirubin Negative (Negative); Blood, Urine Negative (Negative); CAUTI Indications for Culture Dysuria,urgency,freq; Clarity Clear (Clear); Glucose, Urine (Dipstick) Normal (Negative); Ketone, Urine Negative (Negative); Leukocyte Negative Leu/uL (Negative); Nitrite Negative (Negative); Protein, Urine (Dipstick) Negative (Neg-Trace); RBC/HPF 0-3 HPF (0-3); Specific Gravity, Urine 1.029 (1.002-1.036); Squamous Epithelial 0-3 HPF (0-3); Urobilinogen Normal mg/dL (Less than 2); WBC/HPF 0-3 HPF (0-3)
[2022-12-28 19:00] LABS: Urine Culture Reflex No No
[2022-12-28] MEDS ORDERED: cefTRIAXone (ROCEPHIN) 500 MG VIAL ONE (19:18)
[2022-12-28] MEDS ORDERED: Lidocaine 1% PF 5 ML VIAL ONE (19:19)
[2022-12-29 09:40] LABS: Chlamydia by PCR, Vaginal Swab Not Detected (NotDetected); GC by PCR, Vaginal Swab Not Detected (NotDetected); Tric.vaginalis PCR,Vaginal Sw Not Detected (NotDetected)
== END 2022-12-28 19:54 | disposition home or self-care (01) ==
LOC: ERS 18:11
DX: R30.0 Dysuria (principal); I10 Essential (primary) hypertension; Z20.2 Contact with and (suspected) exposure to infections with a predominantly sexual mode of transmission
CPT/HCPCS: 81001; 87491; 87591; 87661; 96372; 99283; J0696

== ENCOUNTER 2023-02-23 14:40 | Emergency (ER) | payer OTHER ==
[2023-02-23] MEDS ORDERED: Dexamethasone 10 MG/ML VIAL ONE (16:06)
[2023-02-23] MEDS ORDERED: Ketorolac Tromethamine 30 MG/ML VIAL ONE (16:06)
== END 2023-02-23 17:08 | disposition home or self-care (01) ==
LOC: ERS 14:40
DX: M16.11 Unilateral primary osteoarthritis, right hip (principal); I10 Essential (primary) hypertension
CPT/HCPCS: 96372; J1100; J1885

== ENCOUNTER 2023-04-05 11:03 | Emergency (ER) | payer OTHER ==
[2023-04-05] MEDS ORDERED: Ketorolac Tromethamine 30 MG (1 mL) VIAL ONE (12:58)
== END 2023-04-05 14:11 | disposition home or self-care (01) ==
LOC: ERS 11:03
DX: M25.511 Pain in right shoulder (principal); I10 Essential (primary) hypertension; X50.0XXA Overexertion from strenuous movement or load, initial encounter; Y93.89 Activity, other specified; Z79.899 Other long term (current) drug therapy
CPT/HCPCS: 96372; J1885

== ENCOUNTER 2023-04-23 16:53 | Emergency (ER) | payer OTHER ==
[~2023-04-23 16:53] MED LIST changes: -ISOVUE-370 76%-LOCM 1 ML ONE; +Iopamidol 370 76% 100 ML VIAL ONE
[2023-04-23] MEDS ORDERED: Dexamethasone 10 MG/ML VIAL ONE (17:42)
[2023-04-23] MEDS ORDERED: Ipratropium/Albuterol 3 ML NEB ONE (17:43)
[2023-04-23] MEDS ORDERED: Acetaminophen 325 MG TAB ONE (17:53)
[2023-04-23 18:33] LABS: #Eosinphils 0.1 thou/uL (0.0-0.7); #Monocytes 0.5 thou/uL (0.11-0.59); #Neutrophils 3.5 thou/uL (1.40-6.50); %Basophils 0.5 % (0.0-1.0); %Lymphocytes 31.4 % (21.0-51.0); %Monocytes 8.3 % (0.0-10.0); %Neutrophils 58.5 % (42.0-75.0); Hematocrit 38.2 % (36.0-47.0); Mean Corpuscular HGB CONC 31.4 g/dL (32.0-36.0); Mean Corpuscular Hemoglobin 27.7 pg (27.0-31.0); Mean Corpuscular Volume 88.2 fl (78.0-98.0); Mean Platelet Volume 9.8 fL (7.4-10.4); Platelet Count 210 10x3/uL (130-400); Red Blood Cell (RBC) Count 4.33 mill/uL (4.20-5.40); White Blood Cell (WBC) Count 5.9 10x3/uL (4.8-10.8)
[2023-04-23 19:00] LABS: ALT (SGPT) 12 U/L (8-55); AST (SGOT) 16 U/L (5-34); Albumin 3.7 g/dL (3.4-4.8); Alkaline Phosphatase 107 U/L (40-110); Anion Gap 13 mmol/L (10-20); BUN (Urea Nitrogen) 25 mg/dL (9.8-20.1); Bilirubin, Total 0.3 mg/dL (0.2-1.2); Calc. Creatinine Clearance 0 mL/min (70-130); Calcium 9.5 mg/dL (7.8-10.44); Carbon Dioxide 21 mmol/L (23-31); Chloride 106 mmol/L (98-107); Estimated GFR 48; Globulin 3.5 g/dL (2.4-3.5); Glucose 103 mg/dL (80-115); Potassium 3.9 mmol/L (3.5-5.1); Protein, Total 7.2 g/dL (5.8-8.1); Sodium 136 mmol/L (136-145)
[2023-04-23 19:14] LABS: Troponin I Less than 0.010 ng/mL (< 0.028)
[2023-04-23] MEDS ORDERED: Ibuprofen 800 MG TAB ONE (20:18)
== END 2023-04-23 23:38 | disposition home or self-care (01) ==
LOC: ERS 16:53
DX: J02.9 Acute pharyngitis, unspecified (principal); N17.9 Acute kidney failure, unspecified; J45.909 Unspecified asthma, uncomplicated; I10 Essential (primary) hypertension; Z79.899 Other long term (current) drug therapy
CPT/HCPCS: 36415; 71045; 71275; 80053; 84484; 85025; 85379; 93005; J1100; J7620; Q9967

== ENCOUNTER 2023-06-18 06:58 | Inpatient (IN) | payer OTHER, MEDICAID ==
[2023-05-30 11:28] VITALS: BMI 38.2
[2023-06-18] MEDS ORDERED: Tranexamic Acid 1,000 MG/10 ML VIAL ONE (07:12)
[2023-06-18] MEDS ORDERED: Sodium Chloride 0.9% 100 ML ONE ×2 (07:12→08:41)
[2023-06-18] MEDS ORDERED: Vancomycin (BATCH) 1.5 GM/300 ML BAG ONE (07:12)
[2023-06-18] MEDS ORDERED: fentaNYL 50 mcg/mL 1 mL Vial ONE ×3 (07:41→12:01)
[2023-06-18] MEDS ORDERED: Midazolam HCl 2 mg/2 ml Vial ONE (07:41)
[2023-06-18] MEDS ORDERED: fentaNYL PF 100 MCG/2 ML SYRINGE ONE (08:04)
[2023-06-18] MEDS ORDERED: PROPOFOL 20 ML ONE (08:04)
[2023-06-18] MEDS ORDERED: Rocuronium Bromide 10 MG/ML (10ML VIAL) ONE (08:04)
[2023-06-18] MEDS ORDERED: MINERAL OIL/WHITE PETROLATUM 3.5 GM TUBE ONE (08:06)
[2023-06-18] MEDS ORDERED: CEFAZOLIN 2 GM VIAL ONE (08:41)
[2023-06-18] MEDS ORDERED: Lidocaine 1.5% w/Epi 1:200K 30 ML VIAL (Epid Use) ONE (08:55)
[2023-06-18] MEDS ORDERED: traMADol HCl 50 MG TAB PO PRN ×2 (09:15)
[2023-06-18] MEDS ORDERED: Naloxone HCl 0.4 mg/ml Vial IVP PRN (09:15)
[2023-06-18] MEDS ORDERED: diphenhydrAMINE 50 MG/ML VIAL IM PRN (09:15)
[2023-06-18] MEDS ORDERED: diphenhydrAMINE 25 MG CAP PO PRN ×2 (09:15→12:05)
[2023-06-18] MEDS ORDERED: Moisturizing Cream (Eucerin) 113 GM JAR TOP PRN (09:15)
[2023-06-18] MEDS ORDERED: Promethazine HCl 25 MG SUPP PR PRN (09:15)
[2023-06-18] MEDS ORDERED: Bupivacaine 0.25% 10 ML VIAL EPIDURAL PRN (09:15)
[2023-06-18] MEDS ORDERED: Zolpidem Tartrate 5 MG TAB PO PRN ×2 (09:15→12:05)
[2023-06-18] MEDS ORDERED: HYDROcodone/Acetaminophen 5/325 mg Tablet PO PRN (09:15)
[2023-06-18] MEDS ORDERED: diphenhydrAMINE 50 MG/ML VIAL IVP PRN (09:15)
[2023-06-18] MEDS ORDERED: Naloxone HCl 0.4 mg/ml Vial IV PRN (09:15)
[2023-06-18] MEDS ORDERED: Ondansetron PF 4 MG/2 ML Vial ONE (10:07)
[2023-06-18] MEDS ORDERED: Dexamethasone 20 MG/5 ML VIAL ONE (10:07)
[2023-06-18] MEDS ORDERED: HYDROmorphone 2 MG/ML VIAL SLOW IVP PRN (10:17)
[2023-06-18] MEDS ORDERED: Ondansetron HCl/PF 4 MG/2 ML Vial IVP PRN (10:17)
[2023-06-18] MEDS ORDERED: Glycopyrrolate 0.2 MG/ML 5 ML SYRINGE ONE (10:19)
[2023-06-18] MEDS ORDERED: SUGAMMADEX SODIUM 200 MG/2 ML VIAL ONE (11:05)
[2023-06-18] MEDS ORDERED: Lidocaine 2% PF 5 ML VIAL ONE (11:10)
[2023-06-18] MEDS: Sodium Chloride 0.9% 1,000 ML IV SCH (11:55)
[2023-06-18] MEDS ORDERED: Ondansetron PF 4 MG/2 ML Vial IVP PRN (12:05)
[2023-06-18] MEDS ORDERED: Acetaminophen 325 MG TAB PO PRN (12:05)
[2023-06-18] MEDS ORDERED: Promethazine HCl 25 MG/ML VIAL IM PRN (12:05)
[2023-06-18] MEDS ORDERED: Ketorolac Tromethamine 30 MG (1 mL) VIAL ONE (12:56)
[2023-06-18] MEDS: Ketorolac Tromethamine 30 MG (1 mL) VIAL IVP SCH (13:00)
[2023-06-18] MEDS: HYDROcodone/Acetaminophen 5/325 mg Tablet PO PRN (14:27)
[2023-06-18] MEDS: CEFAZOLIN 2 GM in Sodium Chloride 0.9% 100 ML IVPB SCH (17:42)
[2023-06-18] MEDS: Senokot S 8.6-50 MG TAB PO SCH (21:51)
[2023-06-18] MEDS: Ferrous Gluconate 324 MG TAB PO SCH (21:51)
[2023-06-18] MEDS: Aspirin 81 mg Enteric Coated Tablet PO SCH (21:52)
[2023-06-19] MEDS: FENTANYL 500 MCG/10 ML VIAL 500 MCG, Bupivacaine 0.75% 10 ML in Sodium Chloride 0.9% 80 ML EPIDURAL SCH (04:09)
[2023-06-19 04:36] LABS: Hematocrit 32.9 % (36.0-47.0); Hemoglobin 10.2 g/dL (12.0-16.0); Mean Corpuscular Hemoglobin 28.1 pg (27.0-31.0); Mean Corpuscular Volume 90.6 fL (78.0-98.0); Mean Platelet Volume 10.4 fL (7.4-10.4); Platelet Count 148 10x3/uL (130-400); Red Blood Cell (RBC) Count 3.63 mill/uL (4.20-5.40)
[2023-06-19 05:04] LABS: Anion Gap 13 mmol/L (10-20)
[2023-06-19 05:07] LABS: BUN (Urea Nitrogen) 21 mg/dL (9.8-20.1); Calc. Creatinine Clearance 79 mL/min (70-130); Calcium 8.1 mg/dL (7.8-10.44); Carbon Dioxide 21 mmol/L (23-31); Chloride 105 mmol/L (98-107); Estimated GFR 52; Glucose 132 mg/dL (80-115); Potassium 3.7 mmol/L (3.5-5.1); Sodium 135 mmol/L (136-145)
[2023-06-19] MEDS: Multivitamin W/ Minerals 1 TAB PO SCH (09:36)
[2023-06-19] MEDS: HYDROcodone/Acetaminophen 10/325 mg Tablet PO PRN (14:08)
[2023-06-19] MEDS: Polyethylene Glycol 3350 17 GM Packet PO SCH (21:24)
[2023-06-19] MEDS: Promethazine HCl 25 MG/ML VIAL IM PRN (21:46)
[2023-06-20 05:18] LABS: Hematocrit 32.3 % (36.0-47.0); Hemoglobin 10.1 g/dL (12.0-16.0); Mean Corpuscular HGB CONC 31.3 g/dL (32.0-36.0); Mean Corpuscular Hemoglobin 28.1 pg (27.0-31.0); Mean Corpuscular Volume 89.7 fL (78.0-98.0); Mean Platelet Volume 10.5 fL (7.4-10.4); Platelet Count 134 10x3/uL (130-400); RBC Distribution Width 14.2 % (11.5-14.5)
[2023-06-20] MEDS: HYDROcodone/Acetaminophen 10/325 mg Tablet PO PRN (09:38)
[2023-06-20] MEDS: Ondansetron PF 4 MG/2 ML Vial IVP PRN (09:38)
[2023-06-20 12:07] VITALS: TEMP 97.6
[2023-06-20 16:27] VITALS: BP 115/71
== END 2023-06-20 17:40 | disposition home or self-care (01) | DRG 470 ==
LOC: SDC 06:58 → SURG B 12:05 → OBSVTOIN 06-20 06:56
PROVIDERS: ADMIT Orthopaedic Surgery; ATTEND Orthopaedic Surgery
PROC: 0SR90JZ Replacement of Right Hip Joint with Synthetic Substitute, Open Approach (ICD-10-PCS; principal; 2023-06-18)
DX: M16.11 Unilateral primary osteoarthritis, right hip (principal); G47.00 Insomnia, unspecified; K21.9 Gastro-esophageal reflux disease without esophagitis; Z90.710 Acquired absence of both cervix and uterus; Z98.890 Other specified postprocedural states; Z98.891 History of uterine scar from previous surgery
CPT/HCPCS: 36415; 72170; 80048; 85027; 96372; 96374; 96375; 96376; C1776; G0378; J1100; J1885; J2001; J2250; J2405; J2550; J2704; J3010; J3370; J3490; J7050

== ENCOUNTER 2023-12-03 09:49 | Outpatient (CLI) | payer OTHER, MEDICAID | END 2023-12-03 09:50 | disposition home or self-care (01) | LOC: MRI 09:49 | PROVIDERS: ATTEND Orthopaedic Surgery | DX: M19.111 Post-traumatic osteoarthritis, right shoulder (principal); M25.511 Pain in right shoulder; S46.911A Strain of unspecified muscle, fascia and tendon at shoulder and upper arm level, right arm, initial encounter; M62.511 Muscle wasting and atrophy, not elsewhere classified, right shoulder ==

== ENCOUNTER 2023-12-07 08:35 | Emergency (ER) | payer OTHER, MEDICAID ==
[2023-12-07] MEDS ORDERED: Ibuprofen 800 MG TAB ONE (09:23)
[2023-12-08 05:14] LABS: Chlamydia by PCR, Vaginal Swab Not Detected (NotDetected); GC by PCR, Vaginal Swab Not Detected (NotDetected)
== END 2023-12-07 11:12 | disposition home or self-care (01) ==
LOC: ERS 08:35
DX: N89.8 Other specified noninflammatory disorders of vagina (principal); M25.511 Pain in right shoulder; I10 Essential (primary) hypertension
CPT/HCPCS: 87480; 87491; 87510; 87591; 87660; 99283

== ENCOUNTER 2024-02-04 10:55 | Emergency (ER) | payer MEDICARE, MEDICAID ==
[2024-02-04] MEDS ORDERED: Ketorolac Tromethamine 30 MG (1 mL) VIAL ONE (11:43)
[2024-02-04] MEDS ORDERED: HYDROcodone/Acetaminophen 5/325 mg Tablet ONE ×2 (11:44→11:52)
== END 2024-02-04 13:13 | disposition home or self-care (01) ==
LOC: ERS 10:55
DX: T20.10XA Burn of first degree of head, face, and neck, unspecified site, initial encounter (principal); T23.172A Burn of first degree of left wrist, initial encounter; T22.111A Burn of first degree of right forearm, initial encounter; I10 Essential (primary) hypertension; Y93.G3 Activity, cooking and baking; X08.8XXA Exposure to other specified smoke, fire and flames, initial encounter; Z87.891 Personal history of nicotine dependence
CPT/HCPCS: 96372; 99283; J1885

== ENCOUNTER 2024-02-18 13:17 | Outpatient (CLI) | payer MEDICARE, MEDICAID | END 2024-02-18 13:18 | disposition home or self-care (01) | LOC: BICMAMMO 13:17 | DX: Z12.31 Encounter for screening mammogram for malignant neoplasm of breast (principal); Z80.3 Family history of malignant neoplasm of breast; Z91.89 Other specified personal risk factors, not elsewhere classified | CPT/HCPCS: 77063; 77067 ==

== ENCOUNTER 2024-02-20 08:13 | Emergency (ER) | payer MEDICARE, MEDICAID | END 2024-02-20 09:05 | disposition home or self-care (01) | LOC: ERS 08:13 | DX: L73.9 Follicular disorder, unspecified (principal); I10 Essential (primary) hypertension; E03.9 Hypothyroidism, unspecified; K21.9 Gastro-esophageal reflux disease without esophagitis; Z55.6 Problems related to health literacy; Z75.3 Unavailability and inaccessibility of health-care facilities; Z87.891 Personal history of nicotine dependence; Z79.899 Other long term (current) drug therapy | CPT/HCPCS: 99282 ==

== ENCOUNTER 2024-04-03 15:06 | Outpatient (CLI) | payer OTHER, MEDICAID | END 2024-04-03 15:07 | disposition home or self-care (01) | LOC: BICCT 15:06 | PROVIDERS: ATTEND Physician Assistant Medical | DX: K59.00 Constipation, unspecified (principal); R10.9 Unspecified abdominal pain; R19.5 Other fecal abnormalities; N28.1 Cyst of kidney, acquired; K42.9 Umbilical hernia without obstruction or gangrene; I70.0 Atherosclerosis of aorta; M47.817 Spondylosis without myelopathy or radiculopathy, lumbosacral region; I70.8 Atherosclerosis of other arteries; Z90.49 Acquired absence of other specified parts of digestive tract | CPT/HCPCS: 36415; 74177; 82565; Q9967 ==